=== PATIENT | male | born 1955 | race Caucasian/White ===

== ENCOUNTER 2023-03-04 19:09 | Emergency (ER) | payer OTHER, MEDICAID ==
[~2023-03-04] VITALS: Ht 172.7 cm; Wt 58.1 kg
[2023-03-04 19:30] VITALS: BP 139/65; PULSE 101; RESP 16; TEMP 99.1; O2SAT 100
[2023-03-04] MEDS ORDERED: LIDOCAINE/EPI MPF 1%1:200000 30 ML VIAL INJ ONE (22:30)
[2023-03-05 00:08] VITALS: BP 123/53; PULSE 98; RESP 16; TEMP 99.1; O2SAT 95
== END 2023-03-05 00:08 | disposition home or self-care (01) ==
LOC: MED 19:09
DX: S01.112A Laceration without foreign body of left eyelid and periocular area, initial encounter (principal); S60.812A Abrasion of left wrist, initial encounter; R51.9 Headache, unspecified; F20.9 Schizophrenia, unspecified; Z88.8 Allergy status to other drugs, medicaments and biological substances; W19.XXXA Unspecified fall, initial encounter; Y93.89 Activity, other specified; Y92.89 Other specified places as the place of occurrence of the external cause; Y99.8 Other external cause status
CPT/HCPCS: 12013; 70450; 73110; 90471; 90715; 99285; J2001; Q0092

== ENCOUNTER 2023-07-19 07:31 | Emergency (ER) | payer OTHER ==
[~2023-07-19] VITALS: Ht 167.6 cm; Wt 81.6 kg
[2023-07-19 08:09] VITALS: BP 107/77; PULSE 78; RESP 18; TEMP 98; O2SAT 98
[2023-07-19] MEDS ORDERED: IBUP-2213 PO (08:53)
== END 2023-07-19 09:25 | disposition home or self-care (01) ==
LOC: MED 07:31
DX: S01.81XA Laceration without foreign body of other part of head, initial encounter (principal); Z86.69 Personal history of other diseases of the nervous system and sense organs; Z79.1 Long term (current) use of non-steroidal anti-inflammatories (NSAID); Z88.8 Allergy status to other drugs, medicaments and biological substances; W18.39XA Other fall on same level, initial encounter; Y92.89 Other specified places as the place of occurrence of the external cause; Y93.89 Activity, other specified; Y99.8 Other external cause status
CPT/HCPCS: 99282

== ENCOUNTER 2024-05-20 10:33 | Emergency (ER) | payer OTHER ==
[~2024-05-20] VITALS: Ht 172.7 cm; Wt 77.1 kg
[~2024-05-20 10:33] MED LIST: IBUP-2213 PO
[2024-05-20 10:44] VITALS: BP 147/83; PULSE 97; RESP 18; TEMP 98.3; O2SAT 96
[2024-05-20 11:52] LABS: BASOPHILS % (AUTO) 0.4 % (0.0-2.0); EOSINOPHILS # (AUTO) 0.2 K/uL (0-0.4); EOSINOPHILS % (AUTO) 2.2 % (0.0-4.0); HEMATOCRIT 41.6 % (36-52); HEMOGLOBIN 13.8 g/dL (12.0-18.0); LYMPHOCYTES % (AUTO) 21.1 % (20.5-51.1); MEAN CORPUSCULAR HEMOGLOBIN 32 pg (27-31); MEAN CORPUSCULAR HGB CONC 33 g/dL (33-37); MEAN CORPUSCULAR VOLUME 96.1 fL (80-94); MONOCYTES # (AUTO) 0.7 K/uL (0.8-1.0); MONOCYTES % (AUTO) 6.9 % (1.7-9.3); NEUTROPHILS # (AUTO) 6.6 K/uL (1.8-7.7); NEUTROPHILS % (AUTO) 69.4 % (42.2-75.2); PLATELET COUNT (AUTO) 171 K/uL (140-450); RED BLOOD CELL COUNT(AUTO) 4.33 MIL/uL (4.20-6.10); RED CELL DISTRIBUTION WIDTH 13.7 % (11.6-13.7); WHITE BLOOD COUNT (AUTO) 9.5 K/uL (4.8-10.8)
[2024-05-20 12:07] LABS: ANION GAP 9.4 (8-16); CALCIUM 10.4 mg/dL (8.5-10.1); CARBON DIOXIDE 26.6 mmol/L (21-32); CREATININE 0.8 mg/dL (0.6-1.3)
[2024-05-20] MEDS ORDERED: AMOX1TAB8 PO (12:48)
[2024-05-20] MEDS ORDERED: AZIT250T4 PO (12:48)
[2024-05-20 13:05] VITALS: BP 147/83; PULSE 68; RESP 18; TEMP 98.3; O2SAT 97
[2024-05-20 14:06] LABS: FLU A ANTIGEN NEGATIVE (NEGATIVE); FLU B ANTIGEN NEGATIVE (NEGATIVE)
== END 2024-05-20 13:05 | disposition home or self-care (01) ==
LOC: MED 10:33
DX: J18.9 Pneumonia, unspecified organism (principal); E03.9 Hypothyroidism, unspecified; Z20.822 Contact with and (suspected) exposure to COVID-19; Z86.69 Personal history of other diseases of the nervous system and sense organs; Z79.899 Other long term (current) drug therapy
CPT/HCPCS: 36415; 71045; 80048; 82948; 84443; 85025; 99284